=== PATIENT | male | born 1990 | race Caucasian/White ===

== ENCOUNTER 2017-08-03 20:07 | Emergency (ER) | payer BC ==
[~2017-08-03] VITALS: Ht 188 cm; Wt 87.5 kg
[2017-08-03 20:22] VITALS: BP 157/102
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
[2017-08-03] MEDS ORDERED: DOXY100C2 PO (21:21)
[2017-08-03] MEDS ORDERED: DIPHTH,PERTUSS(ACELL),TET TOX 0.5 ML DISP.SYRIN. VAX IM ONE (21:30)
[2017-08-03] MEDS ORDERED: LIDOCAINE 1% / SOD BICARB 8.4% 20 ML VIAL. IJ ONE (21:30)
== END 2017-08-03 21:29 | disposition home or self-care (01) ==
LOC: ER 20:07
DX: S20.362A Insect bite (nonvenomous) of left front wall of thorax, initial encounter (principal); W57.XXXA Bitten or stung by nonvenomous insect and other nonvenomous arthropods, initial encounter; Y93.89 Activity, other specified; Y92.89 Other specified places as the place of occurrence of the external cause; Y99.8 Other external cause status
CPT/HCPCS: 10120; 90471; 90715; 99284-25